=== PATIENT | female | born 1980 | race Caucasian/White ===

== ENCOUNTER 2016-08-03 01:23 | Emergency (ER) | payer MEDICAID ==
[~2016-08-03] VITALS: Ht 165.1 cm; Wt 86.0 kg
[2016-08-03 01:25] VITALS: BP 140/90
== END 2016-08-03 02:00 | disposition left against medical advice (07) ==
LOC: ER 01:24
DX: R51 Headache (principal); F31.9 Bipolar disorder, unspecified; I10 Essential (primary) hypertension; Z90.49 Acquired absence of other specified parts of digestive tract